=== PATIENT | female | born 1960 | race Caucasian/White ===

== ENCOUNTER 2017-09-23 14:22 | Emergency (ER) | payer OTHER ==
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
[2017-09-23 14:47] VITALS: BP 138/84; PULSE 66; TEMP 98.5; BMI 24.7
[2017-09-23] MEDS ORDERED: IBUPROFEN 600 MG TABLET (FP) PO ONE ×2 (14:57→15:00)
[2017-09-23] MEDS ORDERED: hydrOXYzine PAMOATE 25 MG CAPSULE (FP) PO ONE ×2 (14:57→15:00)
== END 2017-09-23 15:37 | disposition home or self-care (01) ==
LOC: FER 14:22
DX: S13.4XXA Sprain of ligaments of cervical spine, initial encounter (principal); V43.52XA Car driver injured in collision with other type car in traffic accident, initial encounter; Y93.89 Activity, other specified; Y92.481 Parking lot as the place of occurrence of the external cause
CPT/HCPCS: 72050-TC-FY; 99282-25